=== PATIENT | female | born 1950 | race Two or more races ===

== ENCOUNTER 2017-08-17 07:08 | Day surgery (SDC) | payer OTHER ==
[~2017-08-17 07:08] MED LIST: ALPR.25 PO; ASPI81CH PO; CLOP75 PO; CYCL10 PO; FLUO20 PO; GABA300 PO; HYDACE5 PO; IBUP800 PO; ISOMON60ER PO; LISI5 PO; LORA10ER PO; METO25ER PO; MORP30 PO; MOVANTIK25 MG PO; OXYB5 PO; PRAV20 PO; TRAZ50 PO
== END 2017-08-17 23:05 | disposition home or self-care (01) ==
LOC: ORSCMMR 07:08
PROVIDERS: Internal Medicine Gastroenterology
PROC: 0DBN8ZX Excision of Sigmoid Colon, Via Natural or Artificial Opening Endoscopic, Diagnostic (ICD-10-PCS; principal; 2017-08-17 09:30)
PROC: 0DBB8ZX Excision of Ileum, Via Natural or Artificial Opening Endoscopic, Diagnostic (ICD-10-PCS; principal; 2017-08-17 09:30)
PROC: 0DBE8ZX Excision of Large Intestine, Via Natural or Artificial Opening Endoscopic, Diagnostic (ICD-10-PCS; principal; 2017-08-17 09:30)
PROC: 0DBM8ZX Excision of Descending Colon, Via Natural or Artificial Opening Endoscopic, Diagnostic (ICD-10-PCS; principal; 2017-08-17 09:30)
PROC: 0DBK8ZX Excision of Ascending Colon, Via Natural or Artificial Opening Endoscopic, Diagnostic (ICD-10-PCS; principal; 2017-08-17 09:30)
DX: R10.9 Unspecified abdominal pain (principal); D12.5 Benign neoplasm of sigmoid colon; D12.4 Benign neoplasm of descending colon; K63.5 Polyp of colon; D12.2 Benign neoplasm of ascending colon; K64.8 Other hemorrhoids; R19.4 Change in bowel habit; Z86.010 Personal history of colon polyps; K21.9 Gastro-esophageal reflux disease without esophagitis; Z87.891 Personal history of nicotine dependence; Z79.01 Long term (current) use of anticoagulants; Z79.82 Long term (current) use of aspirin; Z79.899 Other long term (current) drug therapy
CPT/HCPCS: 88305; J7120

== ENCOUNTER → 2019-06-24 | Outpatient (CLI) | payer OTHER ==
[2019-06-24 19:38] LABS: BASOPHILS ABSOLUTE AUTO 0.05 K/mm3 (0.00-0.23); BASOPHILS PERCENT AUTO 1 % (0-2); EOSINOPHILS ABSOLUTE AUTO 0.12 K/mm3 (0.00-0.68); EOSINOPHILS PERCENT AUTO 2 % (0-6); Hematocrit 41.3 % (33.0-51.0); Hemoglobin 13.4 g/dL (11.5-16.0); IMMATURE GRAN ABSOLUTE AUTO 0.01 K/mm3 (0.00-0.10); IMMATURE GRAN PERCENT AUTO 0 % (0-1); LYMPHOCYTES ABSOLUTE AUTO 1.89 K/mm3 (0.84-5.20); LYMPHOCYTES PERCENT AUTO 31 % (21-46); MONOCYTES ABSOLUTE AUTO 0.72 K/mm3 (0.16-1.47); MONOCYTES PERCENT AUTO 12 % (4-13); Mean Corpuscular HGB 32.1 pg (26.0-34.0); Mean Corpuscular HGB Conc 32.4 g/dL (31.5-36.5); Mean Corpuscular Volume 99 fL (80-100); Mean Platelet Volume 11.5 fL (9.1-12.4); NEUTROPHILS PERCENT AUTO 55 % (41-73); Platelet Count 188 K/mm3 (150-400); RDW Coefficient Variation 12.8 % (11.7-14.2); RDW Standard Deviation 47.5 fL (35.1-46.3); Red Blood Cell Count 4.17 M/mm3 (3.80-5.20); White Blood Cell Count 6.19 K/mm3 (4.00-11.30)
[2019-06-24 19:59] LABS: Alanine Aminotransfer (ALT/SGP 27 U/L (12-78); Albumin, Blood 3.6 g/dL (3.4-5.0); Albumin/Globulin Ratio 1.1 (0.8-1.8); Alk Phos 80 U/L (50-136); Anion Gap 5 mmol/L (6-16); Aspartate Aminotrans (AST/SGOT 22 U/L (12-37); Bilirubin, Total 0.5 mg/dL (0.1-1.0); Blood Urea Nitrogen 21 mg/dL (8-24); Bun/Creatinine Ratio 23.2 (12.0-20.0); CO2, Blood 27 mmol/L (21-32); Calcium, Blood 9.1 mg/dL (8.5-10.1); Chloride, Blood 108 mmol/L (98-108); Cholesterol 153 mg/dL (50-200); Creatinine, Blood 0.91 mg/dL (0.40-1.00); Globulin, Blood 3.3 g/dL (2.2-4.0); Glomerular Filtration Rate >60 (60-); Glucose, Blood 87 mg/dL (70-99); HDL Cholesterol 76 mg/dL (>39); Potassium, Blood 3.9 mmol/L (3.5-5.5); Sodium, Blood 140 mmol/L (136-145); Total Protein, Blood 6.9 g/dL (6.4-8.2)
[2019-06-24 20:09] LABS: LDL/HDL RATIO 0.9; Low Density Lipoprotein Chol 68 mg/dL (0-110); Triglycerides 45 mg/dL (30-160); Very Low Density Lipoprot Chol 9 mg/dL (6-32)
== END ==
LOC: LAB 17:48 → LAB SHORT 17:48
PROVIDERS: Family Medicine
DX: I10 Essential (primary) hypertension (principal); Z79.899 Other long term (current) drug therapy
CPT/HCPCS: 80053; 80061; 84443; 85025

== ENCOUNTER 2019-12-05 05:49 | Day surgery (SDC) | payer OTHER ==
[~2019-12-05] VITALS: Ht 167.6 cm; Wt 71.0 kg
[~2019-12-05 05:49] MED LIST changes: +ALBU90OI INH; +ATOR40TA PO; +Isosorbide Mono60 MG PO; +MONT10T PO; +NITR.4SL SL; +RANEXA1000 MG PO; +Ranitidine HCl150 M1 PO; +SYMBICORT 160-4.6 GM INH
--- NOTE | 2019-12-05 10:18 | NUR ---
1015 ALL AIR IS REMOVED FROM THE BAND AND IT HAS BEEN 45 MINUTES FLAT. TR BAND REMOVED AND SITE CLEANED. NO BLEDING, NO HEMATOMA NOTED. CLOTH DOT APPLIED TO THE SITE AND PIV REMOVED ALSO. PRESSURE DRESSING APPLIED TO THE L AC. BEGAN REVIEWING DISCHARGE INSTRUCTIONS AND CARE OF RADIAL SITE.
--- NOTE | 2019-12-05 10:20 | NUR ---
1020 PATIENT UP AND OFF MONITOR. DRESSING SELF AND GATHERING ALL BELONGINGS.
--- NOTE | 2019-12-05 10:35 | NUR ---
1030 PATEINT DISCHARGED VIA WHEELCHAIR. ALL BELONGINGS RETAINED. 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
== END 2019-12-05 10:30 | disposition home or self-care (01) ==
LOC: MHTC 05:49
PROC: B201YZZ Plain Radiography of Multiple Coronary Arteries using Other Contrast (ICD-10-PCS; principal; 2019-12-05)
PROC: 4A023N7 Measurement of Cardiac Sampling and Pressure, Left Heart, Percutaneous Approach (ICD-10-PCS; principal; 2019-12-05)
DX: I25.118 Atherosclerotic heart disease of native coronary artery with other forms of angina pectoris (principal); J44.9 Chronic obstructive pulmonary disease, unspecified; E66.9 Obesity, unspecified; E78.5 Hyperlipidemia, unspecified; I10 Essential (primary) hypertension; Z88.8 Allergy status to other drugs, medicaments and biological substances; Z87.891 Personal history of nicotine dependence; Z79.82 Long term (current) use of aspirin; Z79.899 Other long term (current) drug therapy; Z68.26 Body mass index [BMI] 26.0-26.9, adult
CPT/HCPCS: 93458; 99152; 99153; C1769; C1894; J1644; J2250; J3010; J7030; J7040; Q9967

== ENCOUNTER 2020-12-12 07:56 | Day surgery (SDC) | payer OTHER | END 2020-12-12 23:06 | disposition home or self-care (01) | LOC: ORSCMMR 07:56 | PROC: 0DB68ZX Excision of Stomach, Via Natural or Artificial Opening Endoscopic, Diagnostic (ICD-10-PCS; principal; 2020-12-12) | PROC: 0DB48ZX Excision of Esophagogastric Junction, Via Natural or Artificial Opening Endoscopic, Diagnostic (ICD-10-PCS; principal; 2020-12-12) | PROC: 0DB98ZX Excision of Duodenum, Via Natural or Artificial Opening Endoscopic, Diagnostic (ICD-10-PCS; principal; 2020-12-12) | DX: R11.2 Nausea with vomiting, unspecified (principal); K44.9 Diaphragmatic hernia without obstruction or gangrene; I10 Essential (primary) hypertension; K21.9 Gastro-esophageal reflux disease without esophagitis; F32.9 Major depressive disorder, single episode, unspecified; Z79.82 Long term (current) use of aspirin; Z79.899 Other long term (current) drug therapy ==

== ENCOUNTER → 2022-05-23 | Outpatient (CLI) | payer OTHER ==
[~2022-05-23] MED LIST changes: +Ativan1 MG PO; +Bentyl10 MG PO; +Cymbalta20 MG PO; +FAMO20 PO; +HYDCHL25 PO
[2022-05-23 19:02] LABS: BASOPHILS ABSOLUTE AUTO 0.05 K/mm3 (0.00-0.23); BASOPHILS PERCENT AUTO 1 % (0-2); EOSINOPHILS ABSOLUTE AUTO 0.16 K/mm3 (0.00-0.68); EOSINOPHILS PERCENT AUTO 3 % (0-6); Hematocrit 37.6 % (33.0-51.0); Hemoglobin 12.5 g/dL (11.5-16.0); IMMATURE GRAN ABSOLUTE AUTO 0.01 K/mm3 (0.00-0.10); IMMATURE GRAN PERCENT AUTO 0 % (0-1); LYMPHOCYTES ABSOLUTE AUTO 1.38 K/mm3 (0.84-5.20); LYMPHOCYTES PERCENT AUTO 26 % (21-46); MONOCYTES ABSOLUTE AUTO 0.52 K/mm3 (0.16-1.47); MONOCYTES PERCENT AUTO 10 % (4-13); Mean Corpuscular HGB 31.5 pg (26.0-34.0); Mean Corpuscular HGB Conc 33.2 g/dL (31.5-36.5); Mean Corpuscular Volume 95 fL (80-100); Mean Platelet Volume 11.3 fL (9.1-12.4); NEUTROPHILS ABSOLUTE AUTO 3.29 K/mm3 (1.96-9.15); NEUTROPHILS PERCENT AUTO 61 % (41-73); Platelet Count 199 K/mm3 (150-400); RDW Coefficient Variation 13.2 % (11.7-14.2); Red Blood Cell Count 3.97 M/mm3 (3.80-5.20); White Blood Cell Count 5.41 K/mm3 (4.00-11.30)
[2022-05-23 19:19] LABS: Alanine Aminotransfer (ALT/SGP 29 U/L (12-78); Albumin, Blood 3.4 g/dL (3.4-5.0); Albumin/Globulin Ratio 1.1 (0.8-1.8); Alk Phos 108 U/L (50-136); Anion Gap 3 mmol/L (6-16); Aspartate Aminotrans (AST/SGOT 24 U/L (12-37); Bilirubin, Total 0.6 mg/dL (0.1-1.0); Blood Urea Nitrogen 15 mg/dL (8-24); Bun/Creatinine Ratio 15.6 (12.0-20.0); CHOL/HDL RATIO 1.9; CO2, Blood 32 mmol/L (21-32); Calcium, Blood 8.7 mg/dL (8.5-10.1); Chloride, Blood 107 mmol/L (98-108); Cholesterol 154 mg/dL (50-200); Creatinine, Blood 0.96 mg/dL (0.40-1.00); Glomerular Filtration Rate 63 (60-); Glucose, Blood 103 mg/dL (70-99); HDL Cholesterol 81 mg/dL (>39); LDL/HDL RATIO 0.8; Low Density Lipoprotein Chol 61 mg/dL (0-110); Potassium, Blood 3.3 mmol/L (3.5-5.5); Sodium, Blood 142 mmol/L (136-145); Total Protein, Blood 6.4 g/dL (6.4-8.2); Triglycerides 58 mg/dL (30-160); Very Low Density Lipoprot Chol 11 mg/dL (6-32)
== END | disposition home or self-care (01) ==
LOC: LAB SHORT 09:45
PROVIDERS: Family Medicine
DX: E78.5 Hyperlipidemia, unspecified (principal); Z79.899 Other long term (current) drug therapy
CPT/HCPCS: 80053; 80061; 84443; 85025

== ENCOUNTER → 2022-06-13 | Outpatient (CLI) | payer OTHER ==
[2022-06-13 19:57] LABS: Calcium, Blood 8.9 mg/dL (8.5-10.1); Creatinine, Blood 0.93 mg/dL (0.40-1.00); Potassium, Blood 3.5 mmol/L (3.5-5.5)
== END | disposition home or self-care (01) ==
LOC: LAB SHORT 18:50
PROVIDERS: Family Medicine
DX: E87.6 Hypokalemia (principal)
CPT/HCPCS: 80048; 83735

== ENCOUNTER 2023-01-27 06:50 | Day surgery (SDC) | payer OTHER ==
[~2023-01-27] VITALS: Ht 167.6 cm; Wt 91.1 kg
[2023-01-27] MEDS ORDERED: CARV6.25 (07:15)
--- NOTE | 2023-01-27 07:28 | NUR ---
01/27/23 0728 Leidy Ellis TETRACAINE PLACED IN RIGHT EYE AT 0711. PLEDGET PLACED IN RIGHT EYE AT 0712. PATIENT TOLERATED WELL.
[2023-01-27 08:31] VITALS: BP 131/74
--- NOTE | 2023-01-27 08:37 | NUR ---
01/27/23 0837 Brook Ramirez IV REMOVED, CANNULA INTACT IV SITE WNL PT GEOFF WELL. PT DENIES PAIN AND NAUSEA
== END 2023-01-27 08:42 | disposition home or self-care (01) ==
LOC: ORSCSDS 06:50
PROVIDERS: Student in an Organized Health Care Education/Training Program
PROC: 08RJ3JZ Replacement of Right Lens with Synthetic Substitute, Percutaneous Approach (ICD-10-PCS; principal; 2023-01-27 08:00)
DX: H25.13 Age-related nuclear cataract, bilateral (principal); I10 Essential (primary) hypertension; J45.909 Unspecified asthma, uncomplicated; I25.10 Atherosclerotic heart disease of native coronary artery without angina pectoris; F32.A Depression, unspecified; F41.9 Anxiety disorder, unspecified; I25.2 Old myocardial infarction; Z87.891 Personal history of nicotine dependence; Z79.82 Long term (current) use of aspirin; Z79.899 Other long term (current) drug therapy
CPT/HCPCS: J2001; J2250; J3010; J7040; V2632

== ENCOUNTER 2023-02-10 09:36 | Day surgery (SDC) | payer OTHER ==
[~2023-02-10] VITALS: Ht 167.6 cm; Wt 90.8 kg
[~2023-02-10 09:36] MED LIST changes: +CARV6.25
--- NOTE | 2023-02-10 10:44 | NUR ---
02/10/23 1044 Brook Ramirez TETRACAINE ADMINISTERED TO THE L EYE AT 1040, PLEDGET PLACED AT 1041 BY [facility].FLL. PT GEOFF WELL
[2023-02-10 12:27] VITALS: BP 141/76
--- NOTE | 2023-02-10 12:30 | NUR ---
02/10/23 1230 MARICHUY KRUGER IV REMOVED. WNL. GEOFF WELL. CANNULA INTACT
== END 2023-02-10 12:45 | disposition home or self-care (01) ==
LOC: ORSCSDS 09:36
PROVIDERS: Student in an Organized Health Care Education/Training Program
PROC: 08RK3JZ Replacement of Left Lens with Synthetic Substitute, Percutaneous Approach (ICD-10-PCS; principal; 2023-02-10 11:00)
DX: H25.12 Age-related nuclear cataract, left eye (principal); Z96.1 Presence of intraocular lens; I10 Essential (primary) hypertension; I25.10 Atherosclerotic heart disease of native coronary artery without angina pectoris; J45.909 Unspecified asthma, uncomplicated; Z79.899 Other long term (current) drug therapy; Z79.82 Long term (current) use of aspirin
CPT/HCPCS: J2250; J3010; J7040; V2632